=== PATIENT | female | born 1965 | race Caucasian/White ===

== ENCOUNTER 2016-08-22 11:55 | Inpatient (IN) | payer OTHER ==
--- NOTE | 2016-08-10 16:49 | GHP ---
[f rep st] PREOP HISTORY AND PHYSICAL DATE OF ADMISSION: 08/22/2016 HISTORY: The patient is a pleasant 51-year-old woman who was referred to me for a long history of lo w back problems. She was injured while jumping on a trampoline 2-1/2 years ago. She ultimately unde rwent a right-sided L4-5 microdiskectomy by another surgeon. She did very well after that surgery. She states her right lower extremity nerve pain resolved completely, but she had no improvement in he r lower back pain. Over the past year, her low back pain has increased significantly. Also, in the past 6 weeks, she has noticed significant new onset weakness in her right ankle and foot. The patien t denies any loss of bowel or bladder control. She does have paresthesias in the right leg and foot in the L5 distribution. Treatments have included physical therapy, epidural steroid injections, anti -inflammatories, chiropractics, and pain medication. SOCIAL HISTORY: Negative for tobacco. Positive for social use of alcohol. FAMILY HISTORY: Diabetes mellitus. PAST MEDICAL HISTORY: Hypothyroidism. PAST SURGICAL HISTORY: Left knee ACL reconstruction and right L4-5 microdiskectomy. DRUG ALLERGIES: None. MEDICATIONS: Percocet, hormone replacement therapy, Synthroid, and a liothyronine. REVIEW OF SYSTEMS: Negative for any pertinent positives. PHYSICAL EXAMINATION: VITAL SIGNS: Blood pressure is 114/78. The patient is 5 feet 5 inches tall, weighs 158 pounds. CARDIAC: Regular rate and rhythm without detectable murmur, rub or gallop. LUNG S: Clear to auscultation. She has no wheezing or rhonchi. NEUROLOGIC: Exam does show weakness in the right foot and ankle. Her tibialis anterior on the right is 4/5, right EHL is 3+ over 5, and rig ht plantar flexors are 4/5. Light touch is diminished in the right lateral leg in the 1st dorsal web space. Straight leg raising is mildly positive on the right and negative on the left. She is tender to palpation along the midline at L4-5 and L5-S1 and in the right sciatic notch. She has a well-hea led right-sided paramedian longitudinal incision which shows no signs of infection. Toes are downgoi ng on Babinski exam, and she has no clonus. IMAGING: MRI of the lumbar spine dated 07/05/2016 shows severe degenerative disk disease with Modic changes at L5-S1. There is a grade 1 degenerative spondylolisthesis at L4-5 with moderate DDD. Ther e is mild to moderate DDD at L3-4. She also has severe right-sided L4-5 foraminal stenosis. IMPRESSION: 1. Right L4 and L5 radiculopathies with partial foot drop, worsening. 2. Status post prior right L4-5 microdiskectomy by another surgeon. 3. Grade 1 spondylolisthesis at L4-5. 4. Severe degenerative disk disease at L5-S1, moderate degenerative disk disease at L4-5, and mild t o moderate degenerative disk disease L3-4. PLAN: Given the patient does have a new onset of a partial right foot drop, surgery was recommended. She was in complete agreement, and would like to get this scheduled as soon as possible. This will be in the form of an L3-4, L4-5, L5-S1 laminectomy, transforaminal lumbar interbody fusion, and inst rumentation. She understands the potential risks, benefits, possible complications, including, but n ot limited to, dural tear with CSF leak, meningitis, nerve root injury, partial or complete paralysis , infection, need for further surgery, nonunion, as well as DVT, PE, pneumonia, stroke, heart attack, hemorrhage, blindness, and . I anticipate a 2-3 night hospital stay. Her questions have been answered thoroughly. /[id number]/MODL
[~2016-08-22 11:55] MED LIST: ceFAZolin 2 GM/DEXTROSE 100 ML IV ONE
[2016-08-22] MEDS ORDERED: REMIFENTANIL HCL 1 MG VIAL ONE ×4 (12:44→20:54)
[2016-08-22] MEDS ORDERED: PROPOFOL/EMULSION 500 MG/50 ML BOTTLE IV ONE ×4 (12:45→20:54)
[2016-08-22] MEDS ORDERED: THROMBIN (RECOMBINANT) 20,000 UNIT VIAL TP ONE ×2 (12:59→14:06)
[2016-08-22] MEDS ORDERED: BUPIVACAINE/EPI 0.25% 30 ML SDV ONE (13:00)
[2016-08-22] MEDS ORDERED: BACITRACIN 50,000 UNITS/10 ML SYR IRR ONE ×2 (13:00→14:06)
[2016-08-22] MEDS ORDERED: BUPIVACAINE 0.25% 30 ML SDV ONE ×2 (13:00→14:06)
[2016-08-22] MEDS ORDERED: CEFAZOLIN 2 GM/DEXTROSE/100 ML BAG IV ONE (13:06)
[2016-08-22] MEDS ORDERED: CITRATE DEXTROSE SOLN 500 ML BAG ONE (13:32)
[2016-08-22] MEDS ORDERED: MIDAZOLAM 2 MG/2 ML VIAL ONE (13:42)
[2016-08-22] MEDS ORDERED: LIDOCAINE 2% 5 ML SDV ONE (13:51)
[2016-08-22] MEDS ORDERED: SUCCINYLCHOLINE CHLORIDE*ANESTHESIA ONLY*200 MG/10 ML SYR IVP ONE (13:57)
[2016-08-22] MEDS ORDERED: BISACODYL 10 MG SUPP PR PRN (14:06)
[2016-08-22] MEDS ORDERED: MAGNESIUM HYDROXIDE 30 ML UDCUP PO PRN (14:06)
[2016-08-22] MEDS ORDERED: PROCHLORPERAZINE MALEATE 10 MG TAB PO PRN (14:12)
[2016-08-22] MEDS ORDERED: ACETAMINOPHEN 325 MG TAB PO PRN (14:12)
[2016-08-22] MEDS ORDERED: diphenhydrAMINE 25 MG CAP PO PRN (14:12)
[2016-08-22] MEDS ORDERED: ONDANSETRON DISINTEGRATING 4 MG TAB PO PRN (14:12)
[2016-08-22] MEDS ORDERED: GENTAMICIN SULFATE 80 MG/2 ML VIAL ONE (14:35)
[2016-08-22] MEDS ORDERED: ONDANSETRON 4 MG/2 ML VIAL ONE (14:44)
[2016-08-22] MEDS ORDERED: DEXAMETHASONE 4 MG/ML VIAL ONE (14:44)
[2016-08-22] MEDS ORDERED: ROCURONIUM 50 MG/5 ML VIAL ONE ×2 (14:53→15:03)
[2016-08-22] MEDS ORDERED: morphINE PF 5 MG/10 ML INJ ONE (15:21)
[2016-08-22] MEDS ORDERED: fentaNYL 100 MCG/2 ML INJ ONE (15:21)
[2016-08-22] MEDS ORDERED: AVITENE POWDER 1 GM JAR TP ONE (15:33)
[2016-08-22] MEDS ORDERED: THROMBIN (RECOMBINANT) 5,000 UNIT VIAL TP ONE (18:34)
[2016-08-22] MEDS ORDERED: ceFAZolin 1 GM VIAL ONE (20:14)
[2016-08-22] MEDS ORDERED: KETAMINE 100 MG/10 ML SYR IVP ONE (20:17)
[2016-08-22] MEDS ORDERED: ALBUMIN 5% 250 ML BOTTLE IV ONE (20:54)
[2016-08-22] MEDS ORDERED: HYDROmorphONE/DILAUDID 2 MG/ML SYR ONE (21:04)
--- NOTE | 2016-08-22 21:21 | POSTOPPROG ---
Post Op Note Date of Operation: 08/22/16 Surgeon: Nancy Roasles Hammer Smith: Leeroy Moreira SA Anesthesiologist: Kajal Anesthesia: GET(General Endotracheal) Pre-op Diagnosis: stenosis, scoliosis,DDD L3-S1 Post-op Diagnosis: same Indication: right foot drop, low back pain, scoliosis Procedure: L3-S1 lami, tlifs, post fusion, instrumentation Findings: mod-sev stenosis, scoliosis, DDD L3-S1 Inf/Abcess present in the surg proc area at time of surgery?: No Depth: Deep Incisional (Fascial) EBL: 400 cc Complications: none. No changes in spinal cord monitoring. Drains: Fito Rodriguez
[2016-08-22] MEDS: ONDANSETRON 4 MG/2 ML VIAL IVP PRN (22:00)
[2016-08-22] MEDS ORDERED: PROMETHAZINE HCL 25 MG/ML VIAL IV PRN (22:08)
[2016-08-22] MEDS: D5W 1/2 NS W/ 20 KCl/L 1,000 ML IV SCH (22:24)
[2016-08-22] MEDS: DIAZEPAM 10 MG/2 ML SYR IVP PRN (22:27)
--- NOTE | 2016-08-22 22:55 | DX ---
Fluoroscopy Greater Than An Hour Indication: Multilevel fusion. Fluoroscopy time: 16.77 seconds. Dose: 27.28 mGy. Findings: Two 3D spins were performed. DLP: 836.68. Two spot fluoroscopic images were obtained showing a multilevel fusion from L3 through S1, with inter body disk spacers, pedicle screws, and lumbar laminectomy. Impression: Fluoroscopy provided for multilevel fusion and lumbar laminectomy.
[2016-08-22] MEDS: morphINE SR 30 MG TAB PO SCH (23:34)
[2016-08-22] MEDS: SENNOSIDES/DOCUSATE SODIUM TAB PO SCH (23:35)
[2016-08-23] MEDS: HYDROmorphONE/DILAUDID 1 MG/ML SYR IVP PRN ×2 (00:45→00:46)
[2016-08-23] MEDS: DIAZEPAM 10 MG/2 ML SYR IVP PRN (00:59)
[2016-08-23] MEDS: DIAZEPAM 5 MG TAB PO PRN ×2 (02:49→18:41)
[2016-08-23] MEDS: ONDANSETRON 4 MG/2 ML VIAL IVP PRN (02:53)
[2016-08-23] MEDS ORDERED: SCOPOLAMINE HYDROBROMIDE 1.5 MG PATCH TD SCH (03:00)
[2016-08-23] MEDS ORDERED: DEXAMETHASONE 10 MG/ML VIAL IV ONE (03:00)
[2016-08-23] MEDS: OXYCODONE/APAP 5/325 TAB PO PRN (03:46)
[2016-08-23] MEDS: LEVOTHYROXINE 25 MCG TAB PO SCH (05:20)
[2016-08-23] MEDS: D5W 1/2 NS W/ 20 KCl/L 1,000 ML IV SCH (05:22)
[2016-08-23 05:37] LABS: % IMMATURE GRANULYOCYTES 0.3 % (0.0-1.1); ABSOLUTE IMMATURE GRANULOCYTES 0.04 10^3/uL (0.00-0.10); ADD DIFF? NO; ADD MORPH? NO; ADD SCAN? NO; ATYPICAL LYMPHOCYTE FLAG 0 (0-99); FRAGMENT RBC FLAG 0 (0-99); HEMATOCRIT 35.5 % (38.0-47.0); HEMOGLOBIN 12.3 g/dL (12.6-16.3); LEFT SHIFT FLG 0 (0-99); LIPEMIA HEMOLYSIS FLAG 90 (0-99); MEAN CELL HEMOGLOBIN 30.7 pg (27.9-34.1); MEAN CELL HEMOGLOBIN CONCENTR. 34.6 g/dL (32.4-36.7); MEAN CELL VOLUME 88.5 fL (81.5-99.8); MEAN PLATELET VOLUME 9.4 fL (8.7-11.7); PLATELET CLUMPS FLAG 10 (0-99); PLATELET COUNT 231 10^3/uL (150-400); RED BLOOD CELL COUNT 4.01 10^6/uL (4.18-5.33); RED CELL DISTRIBUTION WIDTH 12.2 % (11.5-15.2)
[2016-08-23] MEDS ORDERED: ESTRADIOL VIVELLE 0.075 MG PATCH TD SCH (08:00)
[2016-08-23] MEDS: LIOTHYRONINE SODIUM 5 MCG TAB PO SCH (09:58)
[2016-08-23] MEDS: morphINE SR 30 MG TAB PO SCH (09:58)
[2016-08-23] MEDS: SENNOSIDES/DOCUSATE SODIUM TAB PO SCH ×2 (09:59→21:02)
[2016-08-23] MEDS: COMPOUNDED PROGESTERONE 200 MG PO SCH (10:25)
[2016-08-23] MEDS: diphenhydrAMINE 25 MG CAP PO PRN ×2 (15:19→21:03)
--- NOTE | 2016-08-23 19:39 | SOAPPROG ---
SOAP Progress Note Assessment/Plan: Assessment: post op day 1, s/p L3-S1 lami, tlif, post fusion, instrum. Pt doing well. Preop R foot drop resolved. Pt does have new LLE weakness (L4) and pain/ mild Plan: Start neurontin. D/C erickson in a.m Change MSContin to oxycontin due to flushing. Cont PT and OT 08/23/16 19:36 Subjective: Pt feeling reasonably well. New L ant thigh numbness. Objective: Vital Signs Temp Pulse Resp BP Pulse Ox 36.5 C 77 14 108/60 97 08/23/16 15:30 08/23/16 16:00 08/23/16 16:00 08/23/16 16:00 08/23/16 16:00 Laboratory Results 08/23/16 05:30 08/22/16 08/23/16 08/24/16 05:59 05:59 05:59 Intake Total 3636 2735 Output Total 1845 4000 Balance 1791 -1265 BLE motor 5/5 except Left Tib Ant 4+/5 and L EHL 3+/5. Radha's negative x 2. Drain functioning properly. ICD10 Worksheet Patient Problems: Problems Problem Status Diagnosed Scoliosis due to degenerative disease of spine in adult patient Acute - ICD10 Problem Qualifiers (1) Scoliosis due to degenerative disease of spine in adult patient
[2016-08-23] MEDS: GABAPENTIN 300 MG CAP PO SCH (21:02)
[2016-08-24] MEDS: LEVOTHYROXINE 25 MCG TAB PO SCH (06:25)
[2016-08-24] MEDS: OXYCODONE/APAP 5/325 TAB PO PRN ×4 (06:30→20:21)
[2016-08-24] MEDS: COMPOUNDED PROGESTERONE 200 MG PO SCH (08:51)
[2016-08-24] MEDS: LIOTHYRONINE SODIUM 5 MCG TAB PO SCH (08:55)
[2016-08-24] MEDS: SENNOSIDES/DOCUSATE SODIUM TAB PO SCH ×2 (08:55→20:21)
[2016-08-24] MEDS: GABAPENTIN 300 MG CAP PO SCH ×3 (08:55→20:21)
[2016-08-24] MEDS: DIAZEPAM 5 MG TAB PO PRN ×2 (12:25→20:21)
--- NOTE | 2016-08-24 18:31 | SOAPPROG ---
SOAP Progress Note Assessment/Plan: Assessment: post op day 1, s/p L3-S1 lami, tlif, post fusion, instrum. Pt doing well. Preop R foot drop resolved. Pt does have new LLE weakness (L4) and pain/ mild Plan: Start neurontin. D/C erickson in a.m Change MSContin to oxycontin due to flushing. Cont PT and OT 08/23/16 19:36 08/24/16 18:29 post op day 2. Pt doing quite well. LLE symptoms improving. Plan: cont PT (stairs) and OT (shower tomorrow). Pain mgmt is good on oxycontin 20 mg bid. Probable discharge to home tomorrow afternoon. Subjective: Pt states her RLE feels good and LLE is improving. Pain well controlled per patient. Objective: Vital Signs Temp Pulse Resp BP Pulse Ox 36.8 C 83 17 90/53 L 93 08/24/16 15:57 08/24/16 15:57 08/24/16 15:57 08/24/16 15:57 08/24/16 15:57 Laboratory Results 08/23/16 05:30 08/23/16 08/24/16 08/25/16 05:59 05:59 05:59 Intake Total 3636 2849 Output Total 1845 3910 1565 Balance 1791 -2401 -1565 BLE motor 5/5 except Left Tib Ant 5-/5 and Left EHL 3+/5. Wound with mild serosanguinous drainage. Drain functioning properly. ICD10 Worksheet Patient Problems: Problems Problem Status Diagnosed Scoliosis due to degenerative disease of spine in adult patient Acute - ICD10 Problem Qualifiers (1) Scoliosis due to degenerative disease of spine in adult patient
[2016-08-25] MEDS: LEVOTHYROXINE 25 MCG TAB PO SCH (05:00)
[2016-08-25] MEDS: OXYCODONE/APAP 5/325 TAB PO PRN ×3 (05:00→15:10)
[2016-08-25] MEDS: COMPOUNDED PROGESTERONE 200 MG PO SCH (09:00)
[2016-08-25] MEDS: GABAPENTIN 300 MG CAP PO SCH ×3 (10:10→21:10)
[2016-08-25] MEDS: LIOTHYRONINE SODIUM 5 MCG TAB PO SCH (10:10)
[2016-08-25] MEDS: SENNOSIDES/DOCUSATE SODIUM TAB PO SCH ×2 (10:11→21:10)
[2016-08-25] MEDS: DIAZEPAM 5 MG TAB PO PRN ×2 (12:10→18:19)
--- NOTE | 2016-08-25 12:47 | SOAPPROG ---
DA Progress Note Assessment/Plan: Assessment: post op day 1, s/p L3-S1 lami, tlif, post fusion, instrum. Pt doing well. Preop R foot drop resolved. Pt does have new LLE weakness (L4) and pain/ mild Plan: Start neurontin. D/C erickson in a.m Change MSContin to oxycontin due to flushing. Cont PT and OT 08/23/16 19:36 08/24/16 18:29 post op day 2. Pt doing quite well. LLE symptoms improving. Plan: cont PT (stairs) and OT (shower tomorrow). Pain mgmt is good on oxycontin 20 mg bid. Probable discharge to home tomorrow afternoon. 08/25/16 12:45 post op day 3. Pt feels she's had a set back. C/o increased numbness and pain, LLE. Plan: decadron i.v 10 mg q 8 x 3 doses to decrease inflammation. Cont pain meds. Avoid B/L/T. Anticipate discharge to home tomorrow. Objective: Vital Signs Temp Pulse Resp BP Pulse Ox 36.6 C 69 18 112/66 100 08/25/16 11:31 08/25/16 11:31 08/25/16 11:31 08/25/16 11:31 08/25/16 11:31 Laboratory Results 08/23/16 05:30 08/24/16 08/25/16 08/26/16 05:59 05:59 05:59 Intake Total 1253 4122 102 Output Total 9296 164 35 Balance -2401 -145 915 ICD10 Worksheet Patient Problems: Problems Problem Status Diagnosed Scoliosis due to degenerative disease of spine in adult patient Acute - ICD10 Problem Qualifiers (1) Scoliosis due to degenerative disease of spine in adult patient
[2016-08-25] MEDS: POLYETHYLENE GLYCOL 3350 17 GM PKT PO PRN (15:09)
[2016-08-25] MEDS: DEXAMETHASONE 10 MG/ML VIAL IVP SCH ×2 (15:10→21:10)
[2016-08-25] MEDS: HYDROCODONE/APAP 10/325 TAB PO PRN ×2 (17:26→17:37)
[2016-08-25 19:53] VITALS: RESP 16
[2016-08-26] MEDS: HYDROCODONE/APAP 10/325 TAB PO PRN ×3 (05:29→15:54)
[2016-08-26] MEDS: LEVOTHYROXINE 25 MCG TAB PO SCH (05:29)
[2016-08-26] MEDS: DEXAMETHASONE 10 MG/ML VIAL IVP SCH (05:30)
[2016-08-26] MEDS: DIAZEPAM 5 MG TAB PO PRN ×2 (05:30→09:14)
[2016-08-26] MEDS: OXYCODONE/APAP 5/325 TAB PO PRN (09:15)
[2016-08-26] MEDS: SENNOSIDES/DOCUSATE SODIUM TAB PO SCH (09:17)
[2016-08-26] MEDS: LIOTHYRONINE SODIUM 5 MCG TAB PO SCH (09:17)
[2016-08-26] MEDS: GABAPENTIN 300 MG CAP PO SCH ×2 (09:17→15:54)
[2016-08-26] MEDS: COMPOUNDED PROGESTERONE 200 MG PO SCH (09:18)
[2016-08-26] MEDS: POLYETHYLENE GLYCOL 3350 17 GM PKT PO PRN (09:20)
--- NOTE | 2016-08-26 12:11 | SOAPPROG ---
DA Progress Note Assessment/Plan: Assessment: post op day 1, s/p L3-S1 lami, tlif, post fusion, instrum. Pt doing well. Preop R foot drop resolved. Pt does have new LLE weakness (L4) and pain/ mild Plan: Start neurontin. D/C dre in a.m Change MSContin to oxycontin due to flushing. Cont PT and OT 08/23/16 19:36 08/24/16 18:29 post op day 2. Pt doing quite well. LLE symptoms improving. Plan: cont PT (stairs) and OT (shower tomorrow). Pain mgmt is good on oxycontin 20 mg bid. Probable discharge to home tomorrow afternoon. 08/25/16 12:45 post op day 3. Pt feels she's had a set back. C/o increased numbness and pain, LLE. Plan: decadron i.v 10 mg q 8 x 3 doses to decrease inflammation. Cont pain meds. Avoid B/L/T. Anticipate discharge to home tomorrow. 08/26/16 12:09 post op day 4. Pt improving. Ready for discharge to home. Pt has Rxs. and f/u appt. Subjective: Pt states left leg pain is mildly improved. Feels somewhat stronger Objective: Vital Signs Temp Pulse Resp BP Pulse Ox 37.0 C 70 16 101/69 91 L 08/26/16 11:28 08/26/16 11:28 08/26/16 11:28 08/26/16 11:28 08/26/16 11:28 Laboratory Results 08/23/16 05:30 08/25/16 08/26/16 08/27/16 05:59 05:59 05:59 Intake Total 1500 1050 Output Total 1645 35 Balance -145 1015 BLE motor 5/5 except Left tib ant 5-/5 and EHL 3+/5. Radha's negative x 2. Dressing changed earlier. ICD10 Worksheet Patient Problems: Problems Problem Status Diagnosed Scoliosis due to degenerative disease of spine in adult patient Acute - ICD10 Problem Qualifiers (1) Scoliosis due to degenerative disease of spine in adult patient
[2016-08-26 15:16] VITALS: BP 106/73; PULSE 85; TEMP 98.3; O2SAT 93
--- NOTE | 2016-08-27 14:16 | GOP ---
[f rep st] OPERATIVE REPORT DATE OF OPERATION: 08/22/2016 SURGEON: Nancy Ghotra MD RELIEF MAP MODELER: Luis M Moreira SA ANESTHESIA: General endotracheal intubation. ANESTHESIOLOGIST: Dr. Maximiliano Rdz PREOPERATIVE DIAGNOSIS: 1. Right L5 and S1 radiculopathies. 2. Two years status post right L4-5 microdiskectomy by another surgeon. 3. Grade 1 degenerative spondylolisthesis at L4-5 with moderate degenerative disk disease. 4. Severe degenerative disk disease L5-S1. 5. Lumbar degenerative scoliosis with the apex at L3-4. POSTOPERATIVE DIAGNOSIS: 1. Right L5 and S1 radiculopathies. 2. Two years status post right L4-5 microdiskectomy by another surgeon. 3. Grade 1 degenerative spondylolisthesis at L4-5 with moderate degenerative disk disease. 4. Severe degenerative disk disease L5-S1. 5. Lumbar degenerative scoliosis with the apex at L3-4. PROCEDURE PERFORMED: L3-4, L4-5, L5-S1 laminectomy, partial facetectomies, transforaminal lumbar int erbody fusion, posterior fusion with instrumentation, and placement of 0.25 mg of intrathecal Duramor ph and 25 mcg of intrathecal fentanyl for postoperative pain control. FINDINGS: Degenerative lumbar scoliosis, severe degenerative disk disease at L5-S1, facet arthropath y all levels L3-S1, lumbar spinal stenosis at L4-5 moderate. ESTIMATED BLOOD LOSS: 400 cc. INDICATIONS: Tameka is a pleasant 51-year-old woman, referred to me for increasing low back pain and right lower extremity pain, as well as weakness. She initially injured herself while jumping on a tr ampoline in 2013. She has undergone a right L4-5 microdiskectomy by another surgeon with good result s. However, over the past year or so she has had increasing low back pain and right lower extremity pain and paresthesias and weakness. She has tried numerous nonoperative treatments, including physic al therapy, epidural steroid injections, antiinflammatories, chiropractics, and pain medication. She has elected to undergo surgery. No guarantees were given in regard to surgical outcome. Potential risks, benefits, possible complications have been thoroughly discussed with the patient including, bu t not limited to, dural tear with CSF leak, meningitis, nerve root injury, partial or complete paraly sis, footdrop, junctional breakdown, need for further surgery, nonunion, breakage or pullout of inter nal fixation, as well as DVT, PE, pneumonia, stroke, heart attack, hemorrhage, blindness, and . The patient's questions were answered thoroughly. No guarantees were given in regard to surgical ou tcome. DESCRIPTION OF PROCEDURE: After obtaining both written and verbal consent from the patient, she was brought to the operating room, where she underwent a general endotracheal intubation. The patient re ceived IV antibiotics. She was rolled to the prone position on the Fito table. All 4 extremities were padded well. The face and eyes were padded per the anesthesiologist. A lateral fluoroscopic x -ray was obtained for localization. The lumbar spine was prepped and draped in the normal sterile fa shion. A timeout was performed with the entire operating room team, confirming patient's name, date of , planned surgical procedure including levels, antibiotics given, and allergies to medication s. After a sterile prep and drape of the lumbar spine, a posterior longitudinal incision was made from a pproximately L2-S1. The incision was brought down through skin and subcutaneous tissues into the ove rlying dorsal fascia. Paraspinal muscles were stripped in a subperiosteal fashion. There was some m oderate epidural fibrosis identified on the right at the previous surgery level, which was L4-5. Tra nsverse processes were stripped of their subperiosteal attachments from L3-S1. An intraoperative x- ray confirmed localization of the correct levels. At this time, a Stealth reference frame using the O-arm was attached to the L2 spinous process. An A P and a lateral fluoroscopic x-ray were obtained using the O-arm, and the 3-dimensional CT scan spin was performed. Using the 3-dimensional guidance, as well as basic anatomic landmarks pedicle screw s ites were identified, initially on the left and then on the right from L3-S1. Initially, a 3 mm roun d bur was used to create a corporation pilot hole, followed by the use of a Stealth guided gearshift and then a b all-tipped probe to palpate the entire depth of the proposed screw sites. All of the proposed screw sites had good bony purchase throughout the entire depth. The probes were all stimulated. The probe s stimulated to greater than 18 milliamps at all levels bilaterally from L3-S1. Then, the appropriat e sized titanium pedicle screws were placed, which are from the [employer] syste m. Screws were all then stimulated using neuromonitoring and all stimulated greater than 20 milliamp s. An AP and a lateral x-ray were obtained, followed by a CT scan spin using the O-arm. This showed good position of all the internal fixation within the boundaries of the pedicles themselves from L3- S1. Then, under loupe magnification laminectomies were performed from L3-4, L4-5 to L5-S1. Decompression of the right L5 and S1 nerve root was extensive using a 2 and 3 mm Kerrison while taking care to pro tect the dura and the exiting nerve roots. It should be mentioned that intraoperative neuromonitorin g was performed, including somatosensory-evoked potentials, motor-evoked potentials, and EMGs. Care was taken to protect the dura at all times. Initially, the L5-S1 level was addressed. This disk space was severely degenerative. A Love nerve r oot retractor was used to gently retract the midline thecal sac and to protect the exiting left L5 ne rve root. A 15 blade knife was used to create an annulotomy at the disk space, and the disk was bertrand marcelle via piecemeal using different size rongeur and a 2-0 curved curette. As mentioned, this disk was severely degenerative with near knpu-hb-vhnj contact. Anette were used to open up the disk space a t L5-S1 and then trials were also utilized. The best fitting trial was a 7 mm. Therefore, a 12 x 27 x 7 mm lordotic ti-Nevarez lucent porous coated PEEK cage was prepared using local bone graft from the laminectomy and augmented with demineralized bone matrix. The peek cage was tamp ed into position at L5-S1. During the insertion, a small piece of metal from the mathematician broke off within the disk space and was left in place as it was unable to be retrieved and was clearly within t he disk space, and not causing any compressive pathology on the dura or the cauda equina. It was jessica isa not of any harm and therefore, it was felt best to leave in place. Then, a second PEEK cage was also tamped into position at L5-S1 and this is the same size. There were no changes in spinal cord monitoring at those times. Then, the L4-5 level was addressed. A PEEK cage measuring 12 x 27 x 10 mm was utilized at this level and recessed about 2 mm. The L3-4 level accepted a 10 x 27 x 9 mm PEEK cage. There were no changes in spinal cord monitoring. An AP and a lateral fluoroscopic view were obtained using the O-arm show ing good position of internal fixation and the PEEK cages at all levels from L3-S1. At this time, 0.25 mg of intrathecal Duramorph and 25 mcg of intrathecal fentanyl were placed via a T B syringe with a 30-gauge needle in the subarachnoid space for postoperative pain control. Dry Gelfo am was placed over the entry site to try and prevent any spinal fluid leakage. At this point, the transverse processes of L3, L4, L5, and sacral ala were decorticated using the rat -toothed rongeur and a quarter-inch curved osteotome. Crushed cancellous bone graft, which was allog eneic, was packed in the posterolateral position augmented with demineralized bone matrix, as well as the patient's own autogenous bone graft from the laminectomy site and augmented with a size large felicity ne morphogenic protein. A 10 flat ROLANDO drain was placed deep to the fascial layer and sewn in with a 2 -0 nylon suture. Hemostasis was obtained. The wound was then closed after sponge and needle count were correct. The wound was closed using #1 Vicryl, 0 Vicryl, and skin prashanth. Sterile dressing was applied. A lumbar warm and form corset was placed. Patient was then rolled to the supine position. She was extubated in the operating room, b rought to the recovery room in satisfactory condition. COMPLICATIONS: None. POSTOPERATIVE PLAN: Close neurologic observation, close airway observation, PT/OT, and pain control. /[id number]/MODL
--- NOTE | 2016-08-27 15:56 | GDS ---
[f rep st] DISCHARGE SUMMARY HOSPITAL COURSE: The patient is a pleasant 51-year-old woman who has had increasing low back pain an d right lower extremity pain and weakness. A couple of years ago, she underwent a right L4-5 microdi skectomy with good results. However, her symptoms have now worsened. She was found to have lumbar s coliosis, degenerative in nature, stenosis, degenerative disk disease, and on exam a right L5 and S1 radiculopathy with a partial foot drop. She elected to undergo surgery. On 08/22/2016, she was admitted to the hospital and, under general anesthetic, she underwent an L3 to S1 laminectomy, transforaminal lumbar interbody fusion, posterior fusion with instrumentation. Postoperatively, the patient stated her right lower extremity pain resolved completely. However, she did experience new left lower extremity pain and weakness. This was mainly in the L4 and L5 distrib utions. The weakness in the tibialis anterior was approximately 4+ over 5 and EHL was about 3 to 3+ over 5. Her pain was well controlled ultimately on OxyContin 40 mg 1 p.o. twice daily, and OxyIR for breakthrough. She was on IV antibiotics postoperatively. Her drain was removed without difficulty. The patient was seen in PT and OT, and became independent in ambulation and activities of daily livin g. The patient tolerated a regular diet. After the Murdock catheter was removed, she was able to urinate independently. The patient was discharged to home on 08/26/2016 in satisfactory condition. She had prescriptions wr itten and a postoperative appointment scheduled for 2 weeks after the day of her surgery. I had plac ed her also on Neurontin 300 mg 1 p.o. three times daily, which did help her nerve pain, as did Decad nadja IV. The patient has been instructed to call my office if her left lower extremity nerve pain or weakness worsen. If so, then we would consider obtaining a CT scan to look at the pedicle screws. H owever, intraoperative O-arm 3-dimensional guidance showed that all screws were within bony confines. Overall, the patient has done exceedingly well and is being discharged to home in satisfactory condit ion. She and her know signs of possible complications to look for, and she should go to the nearest emergency room or call my office if any of those were to occur. /[id number]/MODL
== END 2016-08-26 17:36 | disposition home health service (06) | DRG 458 ==
LOC: F3N 11:55 → F2N 21:40 → F3N 08-24 12:08
PROVIDERS: ADMIT Orthopaedic Surgery Orthopaedic Surgery of the Spine; ATTEND Orthopaedic Surgery Orthopaedic Surgery of the Spine
PROC: 0SG30AJ Fusion of Lumbosacral Joint with Interbody Fusion Device, Posterior Approach, Anterior Column, Open Approach (ICD-10-PCS; principal; 2016-08-22 13:15)
PROC: 01NB0ZZ Release Lumbar Nerve, Open Approach (ICD-10-PCS; principal; 2016-08-22 13:15)
PROC: 4A1004G Monitoring of Central Nervous Electrical Activity, Intraoperative, Open Approach (ICD-10-PCS; principal; 2016-08-22 13:15)
PROC: 0SG10AJ Fusion of 2 or more Lumbar Vertebral Joints with Interbody Fusion Device, Posterior Approach, Anterior Column, Open Approach (ICD-10-PCS; principal; 2016-08-22 13:15)
PROC: 01NR0ZZ Release Sacral Nerve, Open Approach (ICD-10-PCS; principal; 2016-08-22 13:15)
DX: M41.86 Other forms of scoliosis, lumbar region (principal); M51.36 Other intervertebral disc degeneration, lumbar region; E03.9 Hypothyroidism, unspecified; M43.16 Spondylolisthesis, lumbar region; M51.37 Other intervertebral disc degeneration, lumbosacral region; M54.17 Radiculopathy, lumbosacral region
CPT/HCPCS: 97116-GP; 97161-GP; 97166-GO; 97535-GO; C1713; C1762; J0330; J0690; J1100; J1170; J2250; J2274; J2405; J2550; J2704; J3010; J7060; P9041

== ENCOUNTER → 2016-09-05 | Outpatient (CLI) | payer OTHER ==
--- NOTE | 2016-09-05 10:44 | DX ---
Lumbar Spine, 2 standing views History: Postop fusion and lumbar decompression followup Comparison: Preoperative August 03, 2016 Findings: There are new posterior fusion constructs, consisting of bilateral transpedicular screws an d vertical supporting rods between L3 and S1. There are interbody bone plugs present in excellent pos ition at the L3-L4, L4-L5 and L5-S1 disk spaces. There is no evidence for hardware uncoupling or frac ture. There is no evidence for bone plug migration. There is been wide laminectomy behind L4 and the left L5. Bilateral bony fusion masses are faintly seen along the lumbar fusion. On the lateral view t here is improved, now minimal, spondylolisthesis at L4-L5. There is a mild lumbar levoscoliosis, less dominant than on the preoperative exam. Impression: Excellent postoperative alignment.
== END ==
LOC: FIMAGING 09:36
PROVIDERS: ATTEND Orthopaedic Surgery Orthopaedic Surgery of the Spine
DX: Z09 Encounter for follow-up examination after completed treatment for conditions other than malignant neoplasm (principal); Z98.1 Arthrodesis status; M96.1 Postlaminectomy syndrome, not elsewhere classified

== ENCOUNTER → 2016-09-06 | Outpatient (CLI) | payer OTHER ==
[~2016-09-06] MED LIST changes: +IOPAMIDOL (ISOVUE-300) 100 ML BTL IV ONE; -ceFAZolin 2 GM/DEXTROSE 100 ML IV ONE
--- NOTE | 2016-09-06 13:57 | CT ---
CT of the Lumbar Spine with contrast 1248 hours Clinical Indications: Low back pain. Left lower extremity sciatica with left foot drop. Surgery on Ja nuary 2016. Technique: Spiral imaging was obtained through the lumbar spine from T12 through S1 after the admini stration of 90 mL Isovue-300 IV contrast. Images were reconstructed thin slice axial and reconstructe d in sagittal and coronal planes. Dose reduction techniques were utilized. Findings: Postoperative changes are noted with pedicle screws and paraspinal rods from L3 through S1 that appear to be in good position. Bone graft material seen posterior paraspinal soft tissues. Patie nt has had laminectomy at L4 and on the left side of L5 as well as left side of L3. There is incident al fracture of spinous process of L5. There are fluid collections with thin peripheral marginal enhancement representing either postoperati ve seroma or hematoma as follows: 1. Right posterior paraspinal soft tissues centered at series 2, image 182, 3 x 1.5 x 4 cm in AP, tr ansverse, and longitudinal dimensions. 2. Posterior paraspinal soft tissues at the level of inferior endplate of L3, centered around image 267, extending from left to right measuring 2.4 x 7.6 x 4.7 more prominent toward the right. There is a air bubble along the right anterior aspect of this collection at the L3 level. 3. Posterior paraspinal soft tissues in the laminectomy defect at L4, centered around image 323, 2.5 x 3.8 x 4 cm extending into the left epidural space adjacent to the spinal sac at the L4 and L5 leve ls. There is some soft tissue thickening and possible enhancement around the left L5 nerve root in th e lateral recess adjacent to this collection in the left epidural space. Lumbar vertebral bodies are of normal height without compression fractures. There are no lytic or sc lerotic osseous lesions. There is mild levoscoliosis of the lumbar spine. There are no subluxations a ppreciated. T12-L1: Normal. L1-L2: Normal. L2-L3: Normal. L3-L4: Disk replacement material is present in good position. No significant residual disk bulge or protrusion identified. There is some artifact from hardware. L4-L5: Disk replacement material is present in good position. No significant residual disk bulge pro trusion is evident. There is some artifact from hardware. L5-S1: Disk replacement material is evident in good position. No significant residual disk bulge or protrusion is seen. There is some artifact from hardware. There is also a bone fragment adjacent to t he posterior lateral inferior margin of the L5 segment lateral to the neural foramen that is immediat duncan adjacent to the left L5 nerve root possibly causing some compression and displacement. IMPRESSION: 1. Fluid collections associated with the previous surgery from L3 through S1 as detailed above with t hin marginal enhancement possibly representing postoperative seroma or hematoma. The patient is appar ently not febrile or septic making infected collection unlikely. There is a small air bubble associat ed with one of these collections along the right side that could represent residual gas pocket possib ly from previous drainage catheter in place. Clinical correlation recommended. 2. Pedicle screws and paraspinal rods from L3 through S1 with disk replacement material in place delio g with laminectomy as detailed above. 3. Mild levoscoliosis mid lumbar spine. 4. Mild enhancement around the left L5 nerve root in the lateral recess and extending into the neurof oramen along the anterior margin of the left epidural fluid collection. There is also a bone fragment adjacent to the posterior lateral inferior margin of the L5 segment lateral to the neural foramen th at is immediately adjacent to the left L5 nerve root possibly causing some compression and displaceme nt. These findings were discussed by telephone with Dr. Montiel at 1355 hours
== END ==
LOC: FIMAGING 12:02
PROVIDERS: ATTEND Orthopaedic Surgery Orthopaedic Surgery of the Spine
DX: Z98.890 Other specified postprocedural states (principal)
CPT/HCPCS: Q9967

== ENCOUNTER 2016-09-07 14:50 | Inpatient (IN) | payer OTHER ==
--- NOTE | 2016-09-06 18:04 | GHP ---
[f rep st] PREOP HISTORY AND PHYSICAL DATE OF ADMISSION: 09/07/2016 HISTORY: The patient is a pleasant 51-year-old woman who is now 2 weeks status post an L3 to S1 laminectomy, transforaminal lumbar interbody fusion and posterior fusion with instrumentation. Postoperatively she did well. Her preoperative right lower extremity pain resolved completely. However, she did experience new left lower extremity pain and weakness. Today in the office she was seen and states that her low back pain from the incision is healing and doing well and her right lower extremity pain is gone, but her left lower extremity pain is worsening. On a 1-10 scale, she rates her daily pain an 8. She has been on OxyContin 40 mg 1 p.o. twice daily, Oxy IR for breakthrough pain and Neurontin. Despite this, her symptoms are worsening. She also has a partial foot drop on the left with worsening of her weakness in the left tibialis anterior and EHL. A stat CT scan was performed of the lumbar spine to evaluate pedicle screw placement. Although the screws appear to be in good position, there is bony encroachment of the left L5-S1 neural foramen. This seems to be from the posterior aspect of the vertebral body at L5-S1. Her pain today is in the left L5 distribution. The patient denies any loss of bowel or bladder control, but she has had 3 episodes of saddle anesthesia and inability to feel bowel movements. This has resolved. SOCIAL HISTORY: Negative for tobacco. Positive for social use of alcohol. FAMILY HISTORY: Diabetes mellitus. PAST MEDICAL HISTORY: Hypothyroidism. PAST SURGICAL HISTORY: Left ACL reconstruction, a right L4-L5 microdiskectomy as well as the previous L3 to S1 laminectomy, transforaminal lumbar interbody fusion and posterior fusion with instrumentation by myself. ALLERGIES: None. MEDICATIONS: OxyContin 40 mg 1 p.o. twice daily, Oxy IR 1 p.o. q.6 hours p.r.n. breakthrough pain, Synthroid, liothyronine, Valium 5 mg 1 p.o. at bedtime p.r.n., and Neurontin 300 mg 1 p.o. b.i.d. REVIEW OF SYSTEMS: Negative. PHYSICAL EXAM: GENERAL: The patient is a well-developed, well-nourished, very pleasant woman to interact with. CARDIAC: Regular rate and rhythm, without detectable murmur, rub or gallop. LUNGS: Clear to auscultation. She has no wheezing or rhonchi. ABDOMEN: Benign with good bowel sounds. NEUROLOGIC: Strength of bilateral lower extremities to be 5/5 throughout, with the exception of the left tibialis anterior is 4-/5, and left EHL is 2+/5 to 3-/5, and left plantar flexors are 4+/5. Straight leg raising on the left is strongly positive and negative on the right. She has an antalgic gait favoring the left lower extremity. SKIN: The lumbar wound is healing well. There are no signs of infection. RADIOGRAPHIC STUDIES: Plain films taken today were reviewed. The left L5 pedicle screw appears to be somewhat inferior and possibly also with the S1 pedicle screws, and therefore a stat CT scan was obtained. The pedicle screws all appear to be within the confines of the bony pedicle at all levels from L3 to S1. However at L5-S1, there is severe foraminal stenosis due to bone spicules and possibly free fragments of bone. Furthermore, the radiologist states on the left from L4 to S1 there is an epidural mass of fluid, which is likely to be seroma given no signs of infection. IMPRESSION: 1. Partial left foot drop. 2. Severe left L5 radiculopathy postoperative. 3. Two weeks status post L3 to S1 laminectomy, transforaminal lumbar interbody fusion and posterior fusion with instrumentation. PLAN: The patient will be admitted tomorrow for a revision surgery, in that I will do a left L5-S1 revision laminoforaminotomy, exploration of the wound, evacuation of any fluid collection including possible hematoma, and probable slight compression of the left-sided instrumentation. She understands that there may also be an element of stretch injury or contusion to the nerves that are very difficult to determine preoperatively. Relaxing the instrumentation on the left to allow for removal of any potential distraction that may have occurred should also help if indeed she has a stretch type of neurologic injury. The patient will be n.p.o. tonight. She understands the potential risks, benefits, and possible complications including, but not limited to, dural tear with CSF leak, meningitis, nerve root injury, partial or complete paralysis, lack of improvement in symptomatology specifically her footdrop, DVT , PE, pneumonia, stroke, heart attack, hemorrhage, blindness, and . The patient's questions have been answered thoroughly. Again, she will be n.p.o. after midnight tonight. /[id number]/MODL MTDD
[2016-09-07] MEDS ORDERED: LIDOCAINE 1% 5 ML SDV ONE (15:06)
[2016-09-07] MEDS ORDERED: LIDOCAINE 1% 5 ML SDV ID PRN (15:27)
[2016-09-07] MEDS ORDERED: LR 1,000 ML IV ONE (15:27)
[2016-09-07] MEDS ORDERED: ceFAZolin 2 GM in D5W 100 ML IV ONE (16:00)
[2016-09-07] MEDS ORDERED: GENTAMICIN 80 MG/NACL 100 ML IV ONE (16:00)
[2016-09-07] MEDS ORDERED: CEFAZOLIN 2 GM/DEXTROSE/100 ML BAG IV ONE (16:16)
[2016-09-07] MEDS ORDERED: THROMBIN (RECOMBINANT) 20,000 UNIT VIAL TP ONE (16:23)
[2016-09-07] MEDS ORDERED: methylPREDNISolone SOD SUCC 125 MG/2 ML VIAL ONE (16:24)
[2016-09-07] MEDS ORDERED: BUPIVACAINE 0.25% 30 ML SDV ONE (16:24)
[2016-09-07] MEDS ORDERED: BUPIVACAINE/EPI 0.25% 30 ML SDV ONE (16:24)
[2016-09-07] MEDS ORDERED: BACITRACIN 50,000 UNITS/10 ML SYR IRR ONE (16:24)
[2016-09-07] MEDS ORDERED: GABAPENTIN 300 MG CAP PO ONE (16:30)
[2016-09-07] MEDS ORDERED: MIDAZOLAM 2 MG/2 ML VIAL ONE (18:37)
[2016-09-07] MEDS ORDERED: LIDOCAINE 2% 100 MG/5 ML SYR IVP ONE (18:47)
[2016-09-07] MEDS ORDERED: ONDANSETRON 4 MG/2 ML VIAL ONE (18:47)
[2016-09-07] MEDS ORDERED: ROCURONIUM 50 MG/5 ML VIAL ONE (18:47)
[2016-09-07] MEDS ORDERED: DEXAMETHASONE 4 MG/ML VIAL ONE ×2 (18:47→18:50)
[2016-09-07] MEDS ORDERED: HYDROmorphONE/DILAUDID 2 MG/ML SYR ONE (18:48)
[2016-09-07] MEDS ORDERED: fentaNYL 100 MCG/2 ML INJ ONE ×3 (18:48→21:53)
[2016-09-07] MEDS ORDERED: PROPOFOL/EMULSION 500 MG/50 ML BOTTLE IV ONE (18:49)
[2016-09-07] MEDS ORDERED: PROPOFOL 200 MG/20 ML VIAL ONE (18:49)
[2016-09-07] MEDS ORDERED: PHENYLEPHRINE HCL 100 MCG/ML SYR ONE (18:59)
[2016-09-07] MEDS ORDERED: DIAZEPAM 10 MG/2 ML SYR IVP PRN (19:18)
[2016-09-07] MEDS ORDERED: ONDANSETRON DISINTEGRATING 4 MG TAB PO PRN (19:18)
[2016-09-07] MEDS ORDERED: BISACODYL 10 MG SUPP PR PRN (19:18)
[2016-09-07] MEDS ORDERED: HYDROmorphONE/DILAUDID 1 MG/ML SYR IVP PRN (19:18)
[2016-09-07] MEDS ORDERED: ACETAMINOPHEN 325 MG TAB PO PRN (19:18)
[2016-09-07] MEDS ORDERED: POLYETHYLENE GLYCOL 3350 17 GM PKT PO PRN (19:18)
[2016-09-07] MEDS ORDERED: LACTULOSE 20 GM/30 ML UDCUP PO PRN (19:18)
[2016-09-07] MEDS ORDERED: MAGNESIUM HYDROXIDE 30 ML UDCUP PO PRN (19:18)
[2016-09-07] MEDS ORDERED: diphenhydrAMINE 25 MG CAP PO PRN (19:18)
[2016-09-07] MEDS ORDERED: ONDANSETRON 4 MG/2 ML VIAL IVP PRN (19:18)
[2016-09-07] MEDS ORDERED: AVITENE POWDER 1 GM JAR TP ONE (20:23)
--- NOTE | 2016-09-07 21:08 | POSTOPPROG ---
Post Op Note Date of Operation: 09/07/16 Surgeon: Nancy Rosales Sanitation Director: Leeroy Moreira SA Anesthesiologist: MD August Anesthesia: GET(General Endotracheal) Pre-op Diagnosis: Left partial footdrop s/p L3-S1 lami, tlif, post fusion/ instru. Post-op Diagnosis: same Indication: left partial footdrop and severe LLE pain Procedure: Left L5-S1 laminoforam, seroma removal, revision L L3-S1 instrum Findings: severely edematous L L5 nerve root and bone frags from S1 vert body chanel Inf/Abcess present in the surg proc area at time of surgery?: No Depth: Deep Incisional (Fascial) EBL: 125 cc Drains: Fito Rodriguez
[2016-09-07] MEDS ORDERED: HYDROmorphONE/DILAUDID 1 MG/ML SYR ONE ×2 (21:33→21:59)
--- NOTE | 2016-09-07 21:40 | DX ---
Fluoroscopy: 3.7 seconds, 1.61 mGy, of intraoperative fluoroscopy was utilized by Dr. Montiel. One digital radi ographic image shows spinal instrumentation with a metallic probe projecting over the L5-S1 disk.
[2016-09-07] MEDS ORDERED: DIAZEPAM 10 MG/2 ML SYR ONE (21:59)
[2016-09-07] MEDS: D5W 1/2 NS W/ 20 KCl/L 1,000 ML IV SCH (22:58)
[2016-09-07] MEDS: SENNOSIDES/DOCUSATE SODIUM TAB PO SCH (23:36)
[2016-09-08] MEDS: OXYCODONE/APAP 5/325 TAB PO PRN ×3 (00:08→12:28)
[2016-09-08] MEDS ORDERED: GABAPENTIN 300 MG CAP PO SCH (09:00)
[2016-09-08] MEDS: DIAZEPAM 5 MG TAB PO PRN ×2 (09:23→21:46)
[2016-09-08] MEDS: SENNOSIDES/DOCUSATE SODIUM TAB PO SCH ×2 (09:23→21:45)
[2016-09-08] MEDS ORDERED: LORazepam 1 MG TAB PO PRN (17:05)
--- NOTE | 2016-09-08 17:10 | SOAPPROG ---
SOAP Progress Note Assessment/Plan: Assessment: post op day 1, s/p revision Left L5-S1 laminoforaminotomy and Left L3-S1 instrum. for Left post op foot drop. Pt states her left leg pain is about 50% improved, however, still having severe left leg pain with ambulation. Pt states she can barely walk 10 steps. Plan: Will increase gabepentin and use iv decadron. 09/08/16 17:07 Subjective: Pt complains of severe left leg pain and burning dysesthesias with ambulation Objective: Vital Signs Temp Pulse Resp BP Pulse Ox 36.9 C 74 16 118/74 95 09/08/16 16:00 09/08/16 16:00 09/08/16 16:00 09/08/16 16:00 09/08/16 16:00 09/07/16 09/08/16 09/09/16 05:59 05:59 05:59 Intake Total 1530 300 Output Total 1994 1300 Balance -465 -1000 BLE motor 5/5 except left Tib. Ant 4-/5 and Left EHL 3-/5. SLR improved and only positive at 40 degrees compared to 10 degrees preop. Radha's negative x2. Drain functioning properly. ICD10 Worksheet Patient Problems: Problems Problem Status Diagnosed Scoliosis due to degenerative disease of spine in adult patient Acute
[2016-09-08] MEDS: GABAPENTIN 400 MG CAP PO SCH (21:45)
[2016-09-08] MEDS: DEXAMETHASONE 10 MG/ML VIAL IVP SCH (21:46)
[2016-09-08] MEDS: QUEtiapine FUMARATE 100 MG TAB PO SCH (21:46)
[2016-09-09] MEDS: DEXAMETHASONE 10 MG/ML VIAL IVP SCH ×2 (05:14→15:20)
[2016-09-09] MEDS: LIOTHYRONINE SODIUM 5 MCG TAB PO SCH (09:29)
[2016-09-09] MEDS: SENNOSIDES/DOCUSATE SODIUM TAB PO SCH ×3 (09:29→21:25)
[2016-09-09] MEDS: GABAPENTIN 400 MG CAP PO SCH ×3 (09:31→21:18)
[2016-09-09] MEDS: CHOLECALCIFEROL VIT D3 1,000 UNITS TAB PO SCH (09:31)
[2016-09-09] MEDS: CYANO/VITAMIN B12 1000 MCG TAB PO SCH (09:31)
[2016-09-09] MEDS: LEVOTHYROXINE 25 MCG TAB PO SCH (09:31)
[2016-09-09] MEDS: COMPOUNDED PROGESTERONE 200 MG PO SCH (10:04)
--- NOTE | 2016-09-09 16:20 | SOAPPROG ---
SOAP Progress Note Assessment/Plan: Assessment: post op day 1, s/p revision Left L5-S1 laminoforaminotomy and Left L3-S1 instrum. for Left post op foot drop. Pt states her left leg pain is about 50% improved, however, still having severe left leg pain with ambulation. Pt states she can barely walk 10 steps. Plan: Will increase gabepentin and use iv decadron. 09/08/16 17:07 09/09/16 16:18 post op day 2. Pt improving nicely. Plan: will continue iv abx until I remove drain tomorrow. Cont PT and OT. Possible d/c to home tomorrow if nerve pain continues to improve. Subjective: Pt states she's had a good day. Walking with less pain. Objective: Vital Signs Temp Pulse Resp BP Pulse Ox 37.1 C 65 15 93/68 L 98 09/09/16 15:44 09/09/16 15:44 09/09/16 15:44 09/09/16 15:44 09/09/16 15:44 09/08/16 09/09/16 09/10/16 05:59 05:59 05:59 Intake Total 1530 2600 Output Total 1994 1375 Balance -465 1225 BLE motor 5/5 except Left Tib Ant 4/5 and Left EHL 3-/5. Homans negative x 2. Lumbar wound clean and dry. No sign of CSF leak or infection. Drain functioning properly. ICD10 Worksheet Patient Problems: Problems Problem Status Diagnosed Scoliosis due to degenerative disease of spine in adult patient Acute
[2016-09-09] MEDS: DIAZEPAM 5 MG TAB PO PRN (21:18)
[2016-09-09] MEDS: QUEtiapine FUMARATE 100 MG TAB PO SCH (21:18)
[2016-09-09] MEDS: D5W 1/2 NS W/ 20 KCl/L 1,000 ML IV SCH (21:19)
[2016-09-10] MEDS ORDERED: ESTRADIOL VIVELLE 0.075 MG PATCH TD SCH (08:00)
[2016-09-10] MEDS: LIOTHYRONINE SODIUM 5 MCG TAB PO SCH (08:52)
[2016-09-10] MEDS: LEVOTHYROXINE 25 MCG TAB PO SCH (08:52)
[2016-09-10] MEDS: CHOLECALCIFEROL VIT D3 1,000 UNITS TAB PO SCH (08:52)
[2016-09-10] MEDS: GABAPENTIN 400 MG CAP PO SCH (08:52)
[2016-09-10] MEDS: CYANO/VITAMIN B12 1000 MCG TAB PO SCH (08:52)
[2016-09-10] MEDS: SENNOSIDES/DOCUSATE SODIUM TAB PO SCH (08:52)
[2016-09-10] MEDS: COMPOUNDED PROGESTERONE 200 MG PO SCH (09:00)
[2016-09-10 12:26] VITALS: BP 90/67; PULSE 84; RESP 15; TEMP 97.5; O2SAT 96
--- NOTE | 2016-09-10 15:30 | SOAPPROG ---
SOAP Progress Note Assessment/Plan: Assessment: post op day 1, s/p revision Left L5-S1 laminoforaminotomy and Left L3-S1 instrum. for Left post op foot drop. Pt states her left leg pain is about 50% improved, however, still having severe left leg pain with ambulation. Pt states she can barely walk 10 steps. Plan: Will increase gabepentin and use iv decadron. 09/08/16 17:07 09/09/16 16:18 post op day 2. Pt improving nicely. Plan: will continue iv abx until I remove drain tomorrow. Cont PT and OT. Possible d/c to home tomorrow if nerve pain continues to improve. 09/10/16 15:29 post op day 3. Pt doing well. Ready for discharge. Subjective: Pt states left leg is feeling good most of the time. Objective: Vital Signs Temp Pulse Resp BP Pulse Ox 36.4 C 84 15 90/67 L 96 09/10/16 08:00 09/10/16 08:00 09/10/16 08:00 09/10/16 08:00 09/10/16 08:00 09/09/16 09/10/16 09/11/16 05:59 05:59 05:59 Intake Total 2600 1260 Output Total 1375 50 Balance 1225 1210 Lumbar wound clean and dry. Drain removed without difficulty. BLE motor 5/5 except Left Tib Ant 4/5 and left EHL 3/5. Radha's negative x 2. ICD10 Worksheet Patient Problems: Problems Problem Status Diagnosed Scoliosis due to degenerative disease of spine in adult patient Acute
--- NOTE | 2016-09-10 16:26 | GDS ---
[f rep st] DISCHARGE SUMMARY HOSPITAL COURSE: The patient is a pleasant 51-year-old woman, who was admitted to the hospital at 2 weeks status post an L3-S1 laminectomy, transforaminal lumbar interbody fusion, posterior fusion with instrumentation by myself. Postoperatively, she had full resolution of her preoperative right lower extremity pain. However, she experienced new left lower extremity pain and weakness, which escalate d to the point of admission and revision surgery. A CT scan showed good position of internal fixatio n but on exam, the patient had severe left lower extremity pain and a partial left footdrop. This is mainly in the distribution of the L5 nerve root. She was admitted on 09/07/2016. She was brought t o the operating room and, under a general anesthetic, underwent an exploration of the lumbar wound, r emoval of a seroma, and decompression of the left L5 nerve root in the form of a laminoforaminotomy, revision left-sided instrumentation L3-S1, and reaugmentation of bone graft and posterolateral arthro desis on the left from L3-S1. At the time of surgery, the findings mainly included that of a very ed ematous left L5 nerve root that did not stimulate with direct stimulation up to 10 milliamps. The ca use of the edema seemed to be due to the S1 vertebral body bony fragments that had splintered off whi le placing the bone cage at the L5-S1 level at the time of her first surgery. These bone fragments w ere removed. Her seroma was evacuated. A drain was placed deep to the fascial layer. The patient w as kept on IV antibiotics postoperatively. Postoperatively, initially the patient's left leg pain improved somewhat but then, on the second and third days she showed marked improvement of left lower extremity pain. She also showed slight improv ement of strength in her left tibialis anterior and extensor hallucis longus. A drain was left in until the day of discharge, when I removed it without difficulty. Her wound was clean, dry, and intact, and there were no signs of infection. DISCHARGE MEDICATIONS: Include OxyContin 40 mg 1 p.o. b.i.d. daily, OxyIR, 1-2 p.o. q.6 hours p.r.n. for breakthrough pain, Valium 5 mg 1 p.o. q.h.s. p.r.n., Neurontin 400 mg 1 p.o. t.i.d. DISPOSITION: Patient was seen in Physical Therapy and Occupational Therapy, and became independent i n ambulation and activities of daily living. Her pain is being well controlled on aforementioned med ications. She is tolerating a regular diet without any recent nausea or vomiting. She is being disc harged home in satisfactory condition. Patient was given an appointment for followup on September h at 10:30 a.m. in my office. She and her know to call my office immediately if there are an y concerns about worsening nerve pain, loss of strength, risk of infection, or any other concerns the y may have. Overall, she has done well and is being discharged to home in satisfactory condition. /[id number]/MODL
--- NOTE | 2016-09-10 22:12 | GOP ---
[f rep st] OPERATIVE REPORT DATE OF OPERATION: 09/07/2016 SURGEON: Nancy Ghotra MD PLATFORM POWER TECHNICIAN: Luis M Moreira SA ANESTHESIA: General endotracheal intubation. PREOPERATIVE DIAGNOSIS: 1. Two weeks status post L3 to S1 laminectomies, transforaminal lumbar interbody fusions, and french polisher ior fusion with instrumentation. 2. Postoperative left partial foot drop. 3. Left L5-S1 foraminal stenosis due to postoperative bone fragments. POSTOPERATIVE DIAGNOSIS: 1. Two weeks status post L3 to S1 laminectomies, transforaminal lumbar interbody fusions, and french polisher ior fusion with instrumentation. 2. Postoperative left partial foot drop. 3. Left L5-S1 foraminal stenosis due to postoperative bone fragments. PROCEDURE PERFORMED: 1. Left L5-S1 revision laminoforaminotomy. 2. Evacuation of postoperative lumbar wound seroma. 3. Revision left L3 to S1 posterior segmental instrumentation. FINDINGS: Deep lumbar seroma without any evidence of infection, edematous left L5 nerve root, severe left L5-S1 foraminal stenosis due to bone splintering and fragmentation off the superior endplate of the S1 vertebral body. ESTIMATED BLOOD LOSS: 125 mL. INDICATIONS: The patient is a pleasant 51-year-old woman who is 2 weeks status post the aforemention ed L3 to S1 laminectomy, transforaminal lumbar interbody fusion, and posterior fusion with instrument ation. Her preoperative right lower extremity pain resolved. However, postoperatively she had a new left lower extremity pain and weakness that gradually worsened postoperatively. She was seen in the office yesterday and a stat CT scan was done of the lumbar spine showing good position of lumbar ped icle screws, but what appeared to be bone fragments within the left L5-S1 neural foramen causing comp ression of the left L5 nerve root. This matched her exam well. Due to severe pain and footdrop on t he left, surgery was recommended on an urgent basis. No guarantees were given in regard to surgical outcome. Potential risks, benefits, and possible complications, were thoroughly discussed with the p atient, including but not limited to, dural tear with CSF leak, meningitis, nerve root injury, partia l or complete paralysis, infection, need for further surgery, lack of improvement in symptomatology, specifically pain and weakness in the left foot and ankle, DVT, PE, pneumonia, stroke, heart attack, hemorrhage, blindness, and . DESCRIPTION OF PROCEDURE: After obtaining both written and verbal consent from the patient, she was brought to the operating room, where she underwent general endotracheal intubation. The patient rece ived IV antibiotics. Murdock catheter was placed. Patient was rolled to the prone position after intu bation on the Fito table. All 4 extremities were padded well. The face and eyes were padded per the anesthesiologist. The lumbar spine was prepped and draped in the normal sterile fashion. A time -out was performed for the entire operating room team, confirming patient's name, date of , plan jorge surgical procedure including levels, antibiotics given, and allergies to medications. After a sterile prep and drape of the lumbar spine, a midline longitudinal incision was made through the previous scar. The subcutaneous sutures were removed. The deep fascial layer was opened up and the suture was removed also. There was an obvious deep lumbar seroma that was irrigated and evacuate d. There were no signs of infection, as the tissue was pink and bled easily with no obvious smell or purulence. Self-retaining retractors were placed. At this time, the posterior instrumentation on t he left from L3 to S1 was visualized. Furthermore, the left L4 and left L5 nerve roots were visualiz ed. The left L4 nerve root appeared healthy and pink. There was no compressive pathology upon it. The left L5 nerve root, however, was quite edematous and bruised-appearing, although it was completel y intact. There was no evidence of spinal fluid leakage. Under loupe magnification, a Rene was u sed to palpate into the neural foramen which was quite stenosed and the causative factor appeared to be bone fragmentation coming off the superior endplate of the S1 vertebral body within the neural for amen. This was likely due to the placement of the bone cage causing possible splintering of the supe rior endplate into bone fragments. Under the loupe magnification, the bone fragments which were stil l attached to the vertebral body, were removed using a 1.5 mm Kerrison while taking care to protect t he exiting nerve root. The Rene was then used to palpate medial and ventral to the midline thecal sac and the bone cage was tamped in slightly deeper and recessed. It was not causing any compressiv e pathology, but just to be safe, it was tamped in a few millimeters deeper. Then, using spinal cord monitoring and direct nerve stimulation, the left L5 nerve root was stimulated, starting at 0.5 mill iamps and increasing by half milliamps at a time. The left L5 nerve root showed no response when sti mulating up to 10 milliamps. Then, the left L4 nerve root was stimulated directly and this showed a good response at 3.5 and 4 milliamps. Then, at this time, due to potential for the nerve root to als o be elongated, I chose to loosen the instrumentation on the left. The locking caps were removed fro m L3, L4, L5 and S1. The L4 and the L5 pedicle screws were visualized and the medial border of the p edicle and the inferior border of the pedicle at L4 and L5 were palpated with a Loma and there was no breach of the screw through the bone. Therefore all of the pedicle screws were left in place. N ew locking caps were then tightened down and a compressor was used to very gently compress each level (L3-4, L4-5 and L5-S1) in order to relieve any potential nerve tension. The counter-torque and torq ue wrench were then used to tighten down the locking caps as per the recommendation of the manufactur er. An x-ray was then obtained showing localization with the Loma at the L5-S1 neural foramen. D ue to bone graft removal from the opening of the wound and retractors, a size medium bone morphogenic protein was prepared and 30 cc of crushed cancellous bone graft with 10 cc of demineralized bone mat walter were then packed again in the posterolateral position to augment fusion. A 10 flat ROLANDO drain was placed deep to the fascial layer and sewn in with a 2-0 nylon suture at the skin level. Hemostasis w as obtained to the best of our ability. Irrigation was performed. 125 mg of Solu-Medrol was then pl aced over the exiting left L5 nerve root to help with decreasing inflammation. Prior to the placemen t of that, a Loma was used to palpate in the neural foramina again, and the exiting left L5 nerve root was freed up and decompressed as possible. Small pieces of Gelfoam were placed over the dura to protect it. The wound was then closed using a #1 Vicryl, 0 Vicryl, and skin prashanth. Approximately 20 cc of 0.25% Marcaine without epinephrine was infiltrated into the subcutaneous tissues for additi onal postoperative pain control. A sterile dressing was applied. Lumbar warming formed corset was p laced. Patient was then rolled to the supine position. She was extubated in the operating room and brought to the recovery room in satisfactory condition. COMPLICATIONS: None. There were no changes in neural monitoring which included somatosensory evoked potentials, motor evoked potentials, and EMGs. However, the left L5 nerve root did not show any wit h response with stimulation to 10 milliamps. POSTOPERATIVE PLAN: Close neurologic observation, close airway observation, PT/OT, and pain control. /[id number]/MODL
== END 2016-09-10 16:02 | disposition home or self-care (01) | DRG 460 ==
LOC: F3N 14:50
PROVIDERS: ADMIT Orthopaedic Surgery Orthopaedic Surgery of the Spine; ATTEND Orthopaedic Surgery Orthopaedic Surgery of the Spine
PROC: 0J970ZZ Drainage of Back Subcutaneous Tissue and Fascia, Open Approach (ICD-10-PCS; principal; 2016-09-07 17:15)
PROC: 0SG3071 Fusion of Lumbosacral Joint with Autologous Tissue Substitute, Posterior Approach, Posterior Column, Open Approach (ICD-10-PCS; principal; 2016-09-07 17:15)
PROC: 0SW Lower Joints, Revision (ICD-10-PCS; principal; 2016-09-07 17:15)
PROC: 01NB0ZZ Release Lumbar Nerve, Open Approach (ICD-10-PCS; principal; 2016-09-07 17:15)
DX: M21.372 Foot drop, left foot (principal); M96.89 Other intraoperative and postprocedural complications and disorders of the musculoskeletal system; L76.34 Postprocedural seroma of skin and subcutaneous tissue following other procedure; M99.33 Osseous stenosis of neural canal of lumbar region; M54.16 Radiculopathy, lumbar region; E03.9 Hypothyroidism, unspecified; Z98.1 Arthrodesis status
CPT/HCPCS: 97116-GP; 97161-GP; 97165-GO; 97535-GO; C1713; C1762; J0690; J1100; J1170; J1580; J2001; J2250; J2370; J2405; J2704; J3010

== ENCOUNTER → 2016-10-23 | Outpatient (CLI) | payer OTHER | LOC: FIMAGING 08:01 | PROVIDERS: ATTEND Orthopaedic Surgery Orthopaedic Surgery of the Spine | DX: Z98.1 Arthrodesis status (principal); M79.661 Pain in right lower leg; R22.41 Localized swelling, mass and lump, right lower limb ==

== ENCOUNTER → 2016-12-01 | Outpatient (CLI) | payer OTHER | LOC: FIMAGING 09:22 | PROVIDERS: ATTEND Orthopaedic Surgery Orthopaedic Surgery of the Spine | DX: Z09 Encounter for follow-up examination after completed treatment for conditions other than malignant neoplasm (principal); Z98.1 Arthrodesis status ==

== ENCOUNTER → 2017-02-14 | Outpatient (CLI) | payer OTHER | LOC: FIMAGING 11:15 | PROVIDERS: ATTEND Orthopaedic Surgery Orthopaedic Surgery of the Spine | DX: Z09 Encounter for follow-up examination after completed treatment for conditions other than malignant neoplasm (principal); Z98.1 Arthrodesis status ==

== ENCOUNTER → 2017-11-26 | Outpatient (CLI) | payer OTHER ==
[~2017-11-26] MED LIST changes: +IOPAMIDOL (ISOVUE 370) 100 ML BTL IV ONE; -IOPAMIDOL (ISOVUE-300) 100 ML BTL IV ONE
== END ==
LOC: CIMAGING 09:29
PROVIDERS: ATTEND Internal Medicine
DX: Z13.6 Encounter for screening for cardiovascular disorders (principal); R06.02 Shortness of breath; I25.10 Atherosclerotic heart disease of native coronary artery without angina pectoris; M21.372 Foot drop, left foot; Z82.49 Family history of ischemic heart disease and other diseases of the circulatory system
CPT/HCPCS: 71275-PO; 74175-PO; Q9967